=== PATIENT | female | born 1950 | race Caucasian/White ===

== ENCOUNTER → 2017-06-10 | Outpatient (CLI) | payer OTHER ==
[~2017-06-10] MED LIST: ALEVE220 M1 PO; B COMPLEX1 EACH; B COMPLEX1 TAB PO; B-121000 MC1 PO; BACTRIM DS TAB1 EACH; BACTRIM DS TABL1 TA1 PO; COUMADIN6 MG PO; CRANBERRY500 M1 PO; DICLOFENAC SODI50 MG PO; EFFEXOR100 MG PO; EFFEXOR37.5 MG PO; FLONASE 0.05% N16 G1; IBUPROFEN200 M1 PO; IMODIUM2 MG PO; INDERAL20 MG PO; LEVOXYL0.137 MG PO; LOMOTIL WHITE2.5 M1; MACROBID 100 M100 MG PO; MAGNESIUM DR64 M1 PO; MAGNESIUM250 M1 PO; MAGNESIUM500 MG PO; MOTION RELIEF25 MG PO; NATURAL VIT1000 UNIT PO; NATURAL VITA400 UNI2 PO; PERCOCET 10/3251 TAB PO; PERCOCET10 PO; PERCOCET5/325 PO; POTASSIUM; POTASSIUM99 M1 PO; PROBIOTIC1 EAC1 PO; PROPRANOLOL HCL20 MG PO; PYRIDIUM100 MG PO; SUDAFED60 MG PO; SYNTHROID PO; SYNTHROID0.2 MG DOB; SYNTHROID0.2 MG PO; TURMERIC500 M1 PO; VITAMIN C500 M1 PO; [UNRECOGNIZED DRUG - OTHER]
--- NOTE | ~2017-06-10 | EKG ---
PATIENT: BINH BRAUN UNIT #: [id number] Ventricular Rate: 92 BPM Atrial Rate: 92 BPM P-R Interval: 118 ms QRS Duration: 106 ms Q-T Interval: 400 ms QTC Calculation(Bezet): 494 ms P Paterson: 64 degrees Calculated R Paterson: 20 degrees Calculated T Paterson: 110 degrees Diagnosis Line: Normal sinus rhythm Diagnosis Line: Incomplete left bundle branch block Diagnosis Line: ST and T wave abnormality, consider lateral ischemia Diagnosis Line: Prolonged QT Diagnosis Line: Abnormal ECG Diagnosis Line: When compared with ECG of 23-NOV-2016 12:07, Diagnosis Line: Borderline criteria for Anterior infarct are no Diagnosis Line: longer Present Diagnosis Line: Confirmed by JEN ORO MD ([id number]) on Diagnosis Line: 06/11/2017 5:03:31 PM INTERPRETING MD: PREETHI SINGER
--- NOTE | ~2017-06-10 | CO ---
Unit #: [id number] #: [id number] Patient: BINH BRAUN [id number] [address] [place], [place] [address] [id number] O MR#: [id number] NAME: BINH BRAUN ROOM: Age: 66 Sex: F Admission Date: 06/10/2017 : 1950 Attending Physician: David Valadez M.D. Primary Care Physician: Montana Jin M.D. Consultation Date: 06/10/2017 CONSULTATION REPORT REASON FOR CONSULTATION Preoperative medical evaluation prior to left knee unicompartmental versus total knee arthroplasty, scheduled by Dr. Valadez for 06/24/17. HISTORY OF PRESENT ILLNESS The patient is a 66-year-old female who presents to pre-procedural screening for the reasons indicated above. The patient denies pain in the left knee today unless she bears weight or ambulates. She denies current or recent upper chest, upper back, arm, neck, jaw pain or pressure. Denies dyspnea on exertion, paroxysmal nocturnal dyspnea. She has a history of obstructive sleep apnea with CPAP use; however, she states that has resolved and she is no longer required to use CPAP. She is status post gastric bypass and floyd loss of approximately 100 pounds. She denies presyncope, syncope although she admits to intermittent lightheadedness which she attributes to "stress at work." She has a history of vertigo but states that lightheadedness is distinctly different from the vertigo sensation. She denies palpitations. She denies history of myocardial infarction, congestive heart failure, except once which she states was secondary an allergic reaction to Detrol. She denies CVA, TIA, chronic kidney disease. She has type 2 diabetes which is controlled with oral hypoglycemics only. She has been evaluated by Dr. Valadez and scheduled for the above reference procedure. PAST MEDICAL HISTORY 1. Osteoarthritis. 2. Type 2 diabetes mellitus with occasional hypoglycemia, on oral hypoglycemics. 3. Urinary tract infection, currently under treatment with Bactrim DS as dictated under current medications below which was ordered by Dr. Doroteo Gomes, the patient's urologist in anticipation of a Botox injection in her bladder. 4. Obesity, BMI 31. 5. History of obstructive sleep apnea, no longer required to wear CPAP secondary to weight loss. 6. History of left bundle branch block and arrhythmias. 7. History of congestive heart failure secondary to an allergic reaction to Detrol. 8. Hypothyroidism. 9. History of vertigo. 10. History of pica (ice) without previous diagnosis of anemia. 11. Osteoarthritis. 12. Occasional back pain. 13. History of depression. 14. History of chronic surgical abdominal wound infection, healed with Unit #: [id number] #: [id number] Patient: BINH BRAUN incisional hernia. 15. Sepsis. 16. Intermittent lightheadedness. 17. 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 PAST SURGICAL HISTORY 1. E-stim implant for incontinence and subsequent removal. 2. Gastric bypass. 3. Cholecystectomy. 4. Hernia repair x2. 5. Hysterectomy. 6. Hernia repair. 7. History of (1) . 8. Bilateral carpal tunnel release. 9. Left knee arthroscopy. 10. Rotator cuff repair. Please note - patient reports her mother had nausea and hallucinations after general anesthesia. ALLERGIES Denies latex allergy. Detrol LA caused congestive heart failure. Adverse reactions or allergies - nickel changes the color of her skin. CURRENT MEDICATIONS 1. Effexor 100 mg p.o. b.i.d. 2. Levoxyl 0.137 mg p.o. daily. 3. Potassium 198 mg p.o. at bedtime. 4. Motion release meclizine 25 mg p.o. q.i.d. p.r.n. vertigo. 5. Bactrim DS tab, one p.o. b.i.d. Patient started today. 6. Probiotic, one p.o. at bedtime. 7. B complex, one tab daily. 8. Aleve 440 mg p.o. daily p.r.n. pain. 9. Magnesium 500 mg p.o. at bedtime. 10. Imodium 4 mg p.o. at bedtime - takes two tabs to equal 4 mg. SOCIAL HISTORY Denies tobacco use, ETOH use and illicit drug use. FAMILY HISTORY Mother - diabetes and hypertension. Father - coronary artery disease. REVIEW OF SYSTEMS Intermittent lightheadedness. Denies fever, chills, nausea, vomiting, diarrhea. Denies dark, tarry stools or bright red blood per rectum. Denies coffee ground emesis or any source of bleeding. A ten point review of systems is conducted and otherwise negative except as indicated under History of Present Illness above. PHYSICAL EXAMINATION GENERAL: 66-year-old female awake, alert, in no acute distress. VITAL SIGNS: Temperature 97, heart rate 86, respiratory rate 18, blood pressure 148/85, oxygen saturation 97% on room air. HEENT: Atraumatic, normocephalic. Sclerae anicteric. No discharge from eyes, ears or nares. LYMPHS: No preauricular, postauricular, tonsillary, submental, anterior, posterior, cervical adenopathy. ENDOCRINE: No thyromegaly, thyroid nodules or tenderness. Unit #: [id number] #: [id number] Patient: BINH BRAUN RESPIRATORY: Clear to auscultation in all bower bilaterally without wheezes, rhonchi or rales. CARDIOVASCULAR: S1, S2. Regular rate and rhythm without murmur or rub. GI: Bowel sounds positive x4. Soft, nontender, nondistended. EXTREMITIES: No edema, cyanosis or clubbing. MUSCULOSKELETAL: Strength 5/5 all extremities bilaterally in flexion and extension. NEURO: Alert and oriented x3. Speech clear. Cranial nerves II-XII grossly intact. Follows directions during examination. DIAGNOSTIC STUDIES LABORATORY: WBC 4.9, hemoglobin 10.5, hematocrit 34.5, MCV 78.4, MCH 23.9, RDW 18.3, platelets 180,000, sodium 136, potassium 4.7, chloride 105, CO2 28, glucose 85, BUN 13, creatinine 0.8, calcium 8.5, AST 30, ALT 24, alkaline phos. 92, bili total 0.5, total protein 7.0, albumin 3.9. Hemoglobin A1c 4.8. PT 11.1, INR 1.0. Urinalysis - leukocyte esterase 3+, nitrate negative, blood trace, RBCs 5-10, WBCs 200-300, bacteria negative. Squamous cells - none seen. Urine culture and sensitivity pending at this time. Please note - the patient states that she was started on Bactrim. Will need to follow up on urine culture and sensitivity at Dr. Doroteo Gomes's office, if performed prior to surgery. MRSA nasal swab report pending at this time. IMAGIN-view chest x-ray report pending at this time. CARDIOVASCULAR: 12-lead EKG - normal sinus rhythm, incomplete left bundle branch block, ST and T wave abnormality, consider lateral ischemia with prolonged QT. Abnormal 12-lead EKG. IMPRESSION 1. The patient is a 66-year-old female who presents to pre-procedural screening for preoperative medical evaluation prior to left total knee uni versus total knee arthroplasty: The patient's Moreno Revised Cardiac Risk Index is equal to 0.4% based on information available today given the patient's history of left bundle branch block and arrhythmia as well as abnormal EKG today. I have advised the patient to obtain preoperative cardiac clearance through Dr. Pacheco, her brass wind instruments tube bender. She has verbalized understanding of this information. 2. Type 2 diabetes mellitus with occasional hypoglycemia: Will follow Accu-Cheks, monitor postop oral intake, place patient on low dose sliding scale insulin. 3. Probable urinary tract infection with microscopic hematuria: Again, it would be important to follow the blood cultures here as well as from Dr. Gomes's office as the patient is being treated by him with Bactrim DS. She is to complete the entire course of antibiotic therapy. 4. Obesity: BMI 31. 5. History of obstructive sleep apnea: Will monitor and place on JEANE protocol if indicated. 6. History of congestive heart failure secondary to allergic reaction to Detrol. 7. Hypothyroidism: Check TSH and free T4 today. Unit #: [id number] #: [id number] Patient: BINH BRAUN 8. History of vertigo. 9. Anemia with pica without diagnosis or history of anemia in the past per patient report: The patient has been advised to see her primary care physician, Dr. Jin, for workup and clearance due to anemia of unexplained etiology. 10. History of occasional back pain. 11. History of depression. 12. History of chronic surgical abdominal wound healed with abdominal hernia. 13. Lightheadedness: The patient is asymptomatic at this time. Again, the patient is to have preop cardiac clearance from Dr. Pacheco. 14. History of gastric bypass. 15. 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 Thank you for allowing us to participate in the care of this patient. She tells me she has had a dental exam within the past six months with negative findings. Will gladly follow the patient for postop medical management pending order of Dr. Valadez in preoperative clearance and clearance from her primary care physician for anemia of unknown etiology. Dictated by... Skylar Nelson A.P.R.N. for Kelsi Calhoun/anant TD: 06/11/2017 11:37 JOB #: [id number] CONSULTATION REPORT Page 1 of 1 X Skylar Nelson SENIOR RESEARCH ENGINEER X CONSULTATION REPORT
--- NOTE | ~2017-06-10 | CR63 ---
[facility] A Service of [facility] & [facility] RADIOLOGY TEXT RESULTS PATIENT: BINH BRAUN LOCATION: [facility] : [birth year] UNIT #: [id number] AGE: [address]: David Valadez MD SEX: F ORDER DR: [id number] [facility] [address] [place], [place] [address] [id number] O MR#: [id number] Acc #: [id number] NAME: BINH BRAUN. : 1950 SEX: F STUDY DATE/TIME: 06/10/2017 11:14 UNIT: [facility] ROOM: STUDY DESCRIPTION: CR Chest 2 View Attending Physician: David Valadez M.D. Referring Physician: David Valadez M.D. Ordering Physician: David Valadez M.D. Primary Care Physician: Montana Jin M.D. MEDICAL IMAGING REPORT This report is preliminary unless electronic signature is present EXAM Chest 06/10/2017, [facility]. HISTORY 66-year-old female patient, preop clearance left knee arthroplasty, uni versus total. Osteoarthritis left knee. COMPARISON Chest 11/23/1978. FINDINGS Two-view chest includes moderate motion on the lateral view. Cardiac size and configuration are normal. Hilar structures and mediastinal contours are preserved. Bilateral lungs are clear. Costophrenic angles are clear. IMPRESSION Negative and stable chest. Dictated by... Claus Campa M.D. THIS IS AN ELECTRONICALLY VERIFIED REPORT Claus Campa M.D. at 06/10/2017 3:08 PM ALEX/lexa TD: 06/10/2017 14:48 JOB #: [id number] MEDICAL IMAGING REPORT Page 1 of 1 COPY
[2017-06-10 08:47] LABS: HEMATOCRIT 34.5 % (35.0-45.0); HEMOGLOBIN 10.5 gm/dL (12.0-16.0); MEAN CELL VOLUME 78.4 FL (83-96); MEAN CORPUSCULAR HEMOGLOBIN 23.9 PG (28-34); MEAN CORPUSCULAR HGB CONC 30.4 g/dL (30-36); RED BLOOD COUNT 4.4 X10e (3.90-5.30); RED CELL DISTRIBUTION WIDTH 18.3 % (11.0-15.5); WHITE BLOOD COUNT 4.9 X10e3 (4.0-10.5)
[2017-06-10 08:53] LABS: PROTHROMBIN TIME (PATIENT) 11.1 SECONDS (10.0-11.7)
[2017-06-10 09:23] LABS: ALBUMIN SERUM 3.9 g/dL (3.5-5.0); BILIRUBIN,TOTAL 0.5 mg/dL (0.2-2.0); BUN/CREATININE RATIO 16.25; CALCIUM SERUM 8.5 mg/dL (8.4-10.2); CREATININE SERUM 0.8 mg/dL (0.6-1.4); POTASSIUM 4.7 mmol/L (3.5-5.1)
[2017-06-10 09:38] LABS: URINE APPEARANCE CLEAR; URINE BILIRUBIN NEG (NEG); URINE BLOOD TRACE (NEG); URINE COLOR DK YELLOW; URINE GLUCOSE NEG (NEG); URINE KETONE NEG (NEG); URINE LEUKOCYTE ESTERASE 3+ (NEG); URINE NITRATE NEG (NEG); URINE PH 6.5 (5-8); URINE PROTEIN NEG (NEG); URINE SPECIFIC GRAVITY 1.016 (1.003-1.035)
[2017-06-10 09:40] LABS: CULTURE INDICATED? YES; URINE BACTERIA AUWI NEG (NEGATIVE); URINE SQUAMOUS EPITHELIAL CELL NONE SEEN /[HPF]; UWBCS1 AUWI 200-300 (0-5)
[2017-06-10 09:50] LABS: URINE SOURCE CLEAN CATCH
== END | disposition home or self-care (01) ==
LOC: CAMB 07:48
PROVIDERS: Orthopaedic Surgery
DX: Z01.818 Encounter for other preprocedural examination (principal); M17.12 Unilateral primary osteoarthritis, left knee; I44.7 Left bundle-branch block, unspecified; R94.31 Abnormal electrocardiogram [ECG] [EKG]
CPT/HCPCS: 36415; 71020; 80053; 81003; 83036; 84439; 84443; 85027; 85610; 86850; 86900; 86901; 87070; 87086; 87088; 87186; 93005

== ENCOUNTER 2017-06-24 05:36 | Inpatient (IN) | payer OTHER ==
[2017-06-10 14:37] LABS: THYROID STIMULATING HORMONE 1.96 uIU/ml (0.34-5.60)
[2017-06-10 14:44] LABS: FREE THYROXIN (T4) 1.12 ng/dL (0.58-1.64)
[~2017-06-24] VITALS: Ht 160 cm; Wt 82.0 kg
--- NOTE | ~2017-06-24 | DS ---
Unit #: [id number] #: [id number] Patient: BINH BRAUN [id number] [facility] [address] [place], [place] [address] [id number] MR#: [id number] NAME: BINH BRAUN. ROOM: [facility] Age: 66 Sex: F Admission Date: 06/24/2017 : 1950 Discharge Date: 06/25/2017 Attending Physician: David Valadez M.D. Primary Care Physician: Montana Jin M.D. DISCHARGE SUMMARY CONSULTING PHYSICIAN HIPS for medical management. REASON FOR ADMISSION Severe osteoarthritis left knee. PROCEDURES A left total knee arthroplasty. HOSPITAL COURSE The patient was admitted to [facility] with a history of severe pain in her left knee. The patient did have severe osteoarthritis in her left knee. The patient had undergone the above procedure. The patient tolerated the procedure well and no apparent complications. Today she is in stable condition. Her temperature is 98.1, blood pressure 100/58, heart rate is 101 and regular, respirations 18. Her incision is healing well. Neurovascular exam is intact. She had 2+ pulses in the lower extremities. Plan will be to discharge her home later today. DISPOSITION Home with home health, which is [facility]. PERTINENT LABS PT was 17.0, INR was 1.6, hemoglobin 8.6. MEDICATIONS Per med rec list. She will be on her regular home medications and Coumadin and Percocet for pain control. FOLLOWUP INSTRUCTIONS Patient will need [facility] to follow her. She will need PT/INR on 06/26/2017, 06/27/2017, 06/28/2017 and then every Saturday and thereafter. Call the results to [phone] of fax to Nov at [phone]. The patient will need EAGLE hose during the day and off at night. The patient should not drive until see by Dr. Valadez on Saturday08/06/2017 and the patient will begin physical therapy, including active to active-assist range of motion, strengthening, and progressive ambulation beginning with a walker and progress to cane as tolerated. Dictated by... Satish Fall P.A.-C- for David Valadez M.D. Unit #: [id number] #: [id number] Patient: BINH BRAUN/ts TD: 06/25/2017 09:40 JOB #: [id number] DISCHARGE SUMMARY Page 1 of 1 X X DISCHARGE SUMMARY
--- NOTE | ~2017-06-24 | OR ---
Unit #: [id number] #: [id number] Patient: BINH BRAUN [id number] [address] [place], [place] [address] [id number] I MR#: [id number] NAME: BINH BRAUN. ROOM: [facility] Date of Procedure: 06/24/2017 Admission Date: 06/24/2017 Surgeon: David Valadez M.D. : 1950 Attending Physician: David Valadez M.D. Primary Care Physician: Montana Jin M.D. OPERATIVE REPORT PREOPERATIVE DIAGNOSIS Primary localized osteoarthritis of the left knee. POSTOPERATIVE DIAGNOSIS Primary localized osteoarthritis of the left knee. PROCEDURE PERFORMED Left total knee. INDICATIONS FOR PROCEDURE The patient is a 66-year-old with severe pain in her left knee. She has had MRIs that reveal she has medial disease and patellofemoral disease. She has tried injections and anti-inflammatories with no relief of her discomfort. She is brought to the hospital today for left total knee. DESCRIPTION OF PROCEDURE The patient was brought to the operating room, given 2 g of Kefzol. She will receive two doses postoperatively. She had an adductor canal block performed and was brought back to the operating room, given a general anesthetic. Tourniquet was placed around the left thigh. The left leg was prepped and draped in a sterile fashion. Tourniquet was inflated to 250. A straight anterior skin incision was made. The subcutaneous dissected away and a medial arthrotomy was performed. Patella was slid to the side. Osteophytes were removed from the femur. The intramedullary guide was used and a 6-degree valgus cut was made on the distal femur. The femur was sized and found to be a size 3 from the [employer] Oxinium Knee System. The patient then had the anterior-posterior cutting block applied. The anterior and posterior cuts were made along with the chamfer cuts. Proximal tibial cut was made using an external guide. It was sized at a 2 and remaining meniscal fragments were debrided and then the posterior capsule and periosteum were injected with ropivacaine mixture. The trial femur was applied and the lug holes were made for the real component. The trial tibia was applied with a 9 insert. The knee came to full extension, had good stability in extension and flexion. We then grasped the patella with 2 towel clips. It measured 23 mm thick, was cut smooth at 13 and a 32 patella was the appropriate size. The trial patella applied and the knee was found to track properly. We then removed all the trials, used the drill and punch for the tibial tray. The knee was irrigated and dried while the cement was mixed. All three components were cemented simultaneously. Once again, it was a size 3 femur, size 2 tibia, and a 32 patella. We did remove the marker ring from the patella. Any excess cement was removed and after the cement was Unit #: [id number] #: [id number] Patient: BINH BRAUN hardened, it was judged that the 9 insert was the appropriate thickness, so this was opened and applied to the tibial tray. The tourniquet was released. Hemostasis was obtained and then the wound was closed using 0 Ethibond in the arthrotomy, 0 and 2-0 Vicryl in the subcutaneous, and Prineo wound closure in the skin. [employer] [place]. ESTIMATED BLOOD LOSS 100 mL. Dictated by... Kelsi Nguyen/heather TD: 06/24/2017 19:23 JOB #: [id number] OPERATIVE REPORT Page 1 of 1 X David Valadez MD X PROCEDURE OPERATIVE NOTE
[~2017-06-24 05:36] MED LIST changes: -ALEVE220 M1 PO; -B COMPLEX1 EACH; -BACTRIM DS TAB1 EACH; -COUMADIN6 MG PO; -EFFEXOR100 MG PO; -IMODIUM2 MG PO; -LEVOXYL0.137 MG PO; -MAGNESIUM500 MG PO; -MOTION RELIEF25 MG PO; -PERCOCET10 PO; -POTASSIUM99 M1 PO; -PROBIOTIC1 EAC1 PO
[2017-06-24 06:33] LABS: URINE APPEARANCE CLEAR; URINE BLOOD NEG (NEG); URINE COLOR DK YELLOW; URINE GLUCOSE NEG (NEG); URINE KETONE TRACE (NEG); URINE LEUKOCYTE ESTERASE TRACE (NEG); URINE NITRATE NEG (NEG); URINE PROTEIN NEG (NEG); URINE SPECIFIC GRAVITY 1.024 (1.003-1.035)
[2017-06-24 06:35] LABS: URINE BACTERIA AUWI NEG (NEGATIVE); URINE SQUAMOUS EPITHELIAL CELL OCC /[HPF]
[2017-06-24 06:37] LABS: CULTURE INDICATED? NO; URINE BILIRUBIN NEG (NEG)
[2017-06-24 06:38] LABS: URINE SOURCE CATH
[2017-06-24 06:40] LABS: HEMATOCRIT 34.7 % (35.0-45.0); HEMOGLOBIN 10.8 gm/dL (12.0-16.0); MEAN CELL VOLUME 78.3 FL (83-96); MEAN CORPUSCULAR HEMOGLOBIN 24.3 PG (28-34); MEAN CORPUSCULAR HGB CONC 31.1 g/dL (30-36); MEAN PLATELET VOLUME 9.2 FL (6.5-11.5); RED BLOOD COUNT 4.43 X10e (3.90-5.30); RED CELL DISTRIBUTION WIDTH 18.4 % (11.0-15.5); WHITE BLOOD COUNT 5.7 X10e3 (4.0-10.5)
[2017-06-24 06:43] LABS: PROTHROMBIN TIME (PATIENT) 11.2 SECONDS (10.0-11.7)
[2017-06-24] MEDS ORDERED: PROBIOTIC1 EAC1 PO (08:34)
[2017-06-24] MEDS ORDERED: BACTRIM DS TAB1 EACH (08:34)
[2017-06-24] MEDS ORDERED: B COMPLEX1 EACH (08:35)
[2017-06-24] MEDS ORDERED: MAGNESIUM500 MG PO (08:39)
[2017-06-24] MEDS ORDERED: ALEVE220 M1 PO (08:39)
[2017-06-24] MEDS ORDERED: POTASSIUM99 M1 PO (08:41)
[2017-06-24] MEDS ORDERED: IMODIUM2 MG PO (09:04)
[2017-06-24] MEDS ORDERED: LEVOXYL0.137 MG PO (11:53)
[2017-06-24] MEDS ORDERED: MOTION RELIEF25 MG PO (11:59)
[2017-06-24] MEDS ORDERED: EFFEXOR100 MG PO (12:13)
[2017-06-25 03:41] LABS: HEMATOCRIT 27.7 % (35.0-45.0)
[2017-06-25 03:51] LABS: HEMOGLOBIN 8.6 gm/dL (12.0-16.0)
[2017-06-25 04:00] LABS: INR 1.6
[2017-06-25 04:03] LABS: BUN/CREATININE RATIO 14.44; CALCIUM SERUM 7.9 mg/dL (8.4-10.2); CREATININE SERUM 0.9 mg/dL (0.6-1.4); GLOM FILT RATE Estimated 67.6 mL/min (>60); POTASSIUM 4.8 mmol/L (3.5-5.1)
[2017-06-25] MEDS ORDERED: COUMADIN6 MG PO (10:46)
[2017-06-25] MEDS ORDERED: PERCOCET10 PO (10:47)
== END 2017-06-25 14:38 | disposition home health service (06) | DRG 470 ==
LOC: CSUR 05:36 → C4B 08:55 → CPACUOF 08:55 → CSUR 08:58 → C4B 10:10 → CPACUOF 10:10 → C4B 06-25 14:38
PROVIDERS: Nurse Practitioner; Orthopaedic Surgery
PROC: 0SRD0J9 Replacement of Left Knee Joint with Synthetic Substitute, Cemented, Open Approach (ICD-10-PCS; principal; 2017-06-24 07:00)
DX: M17.12 Unilateral primary osteoarthritis, left knee (principal); E03.9 Hypothyroidism, unspecified; G47.33 Obstructive sleep apnea (adult) (pediatric); E66.9 Obesity, unspecified; Z90.710 Acquired absence of both cervix and uterus; Z68.32 Body mass index [BMI] 32.0-32.9, adult
CPT/HCPCS: 80048; 81003; 82947; 83735; 84439; 84443; 85014; 85018; 85027; 85610; 94760; 97110; 97116; 97161; C1776; G8978-GP; G8979-GP; G8980-GP; J0131; J0171; J0690; J0735; J1100; J1650; J1885; J2175; J2250; J2405; J2795; J3010

== ENCOUNTER → 2017-07-23 | Outpatient (CLI) | payer OTHER ==
[~2017-07-23] MED LIST changes: +ALEVE220 M1 PO; +B COMPLEX1 EACH; +BACTRIM DS TAB1 EACH; +COUMADIN6 MG PO; +EFFEXOR100 MG PO; +IMODIUM2 MG PO; +LEVOXYL0.137 MG PO; +MAGNESIUM500 MG PO; +MOTION RELIEF25 MG PO; +PERCOCET10 PO; +POTASSIUM99 M1 PO; +PROBIOTIC1 EAC1 PO
[2017-07-23 12:38] LABS: INR 2.3; PROTHROMBIN TIME (PATIENT) 25.9 SECONDS (9.5-12.4)
== END | disposition home or self-care (01) ==
LOC: SLAB 07:42
PROVIDERS: Orthopaedic Surgery
DX: Z51.81 Encounter for therapeutic drug level monitoring (principal); Z96.652 Presence of left artificial knee joint; Z79.01 Long term (current) use of anticoagulants
CPT/HCPCS: 36415; 85610